=== PATIENT | male | born 1985 | race Caucasian/White ===

== ENCOUNTER 2017-03-31 05:38 | Emergency (ER) | payer BC, OTHER | END 2017-03-31 09:05 | disposition home or self-care (01) | LOC: ER1 05:38 | DX: S29.012A Strain of muscle and tendon of back wall of thorax, initial encounter (principal); S60.812A Abrasion of left wrist, initial encounter; T14.8 Other injury of unspecified body region; V89.9XXA Person injured in unspecified vehicle accident, initial encounter; Y93.89 Activity, other specified; Y92.410 Unspecified street and highway as the place of occurrence of the external cause | CPT/HCPCS: 71020; 72072; 72100; 96372; 96374; 99284; J1100; J1885 ==